=== PATIENT | female | born 1940 | race Hispanic/Latino ===

== ENCOUNTER → 2017-04-15 | Outpatient (RCR) | payer MEDICARE, OTHER | LOC: EDBD → PT 10:06 | PROVIDERS: ATTEND Specialist | DX: M17.11 Unilateral primary osteoarthritis, right knee (principal) | CPT/HCPCS: 97161; G8978; G8979 ==

== ENCOUNTER 2017-05-14 09:44 | Outpatient (RCR) | payer MEDICARE, OTHER | END 2017-05-16 | LOC: PT 09:44 | PROVIDERS: ATTEND Specialist | DX: M25.561 Pain in right knee (principal); M17.11 Unilateral primary osteoarthritis, right knee; M25.661 Stiffness of right knee, not elsewhere classified; M62.81 Muscle weakness (generalized) | CPT/HCPCS: 97010 ×5; 97110 ×9; 97139; 97140; G8978; G8979 ==

== ENCOUNTER 2017-06-12 10:51 | Outpatient (RCR) | payer MEDICARE, OTHER | END 2017-06-15 | LOC: PT 10:51 | PROVIDERS: ATTEND Specialist | DX: M17.11 Unilateral primary osteoarthritis, right knee (principal); M25.561 Pain in right knee; M25.661 Stiffness of right knee, not elsewhere classified; R26.2 Difficulty in walking, not elsewhere classified; M62.81 Muscle weakness (generalized) | CPT/HCPCS: 97010 ×4; 97110 ×11; 97139 ×2; G8978; G8979 ==

== ENCOUNTER 2017-09-14 08:00 | Outpatient (RCR) | payer MEDICARE, OTHER | END 2017-09-15 | LOC: PT 08:00 | PROVIDERS: ATTEND Anesthesiology | DX: M47.816 Spondylosis without myelopathy or radiculopathy, lumbar region (principal); M54.5 Low back pain; M54.16 Radiculopathy, lumbar region; M62.81 Muscle weakness (generalized) | CPT/HCPCS: 97010; 97110 ×8; 97162; G8978; G8979 ==

== ENCOUNTER 2017-10-02 13:52 | Outpatient (RCR) | payer MEDICARE, OTHER | END 2017-10-16 | LOC: PT 13:52 | PROVIDERS: ATTEND Anesthesiology | DX: M54.5 Low back pain (principal); M54.16 Radiculopathy, lumbar region; M47.816 Spondylosis without myelopathy or radiculopathy, lumbar region; M62.18 Other rupture of muscle (nontraumatic), other site | CPT/HCPCS: 97010 ×2; 97110 ×7; 97139; G8978; G8979 ×2; G8980 ==